=== PATIENT | male | born 1955 | race Caucasian/White ===

== ENCOUNTER → 2017-09-03 | Outpatient (CLI) | payer OTHER ==
[~2017-09-03] MED LIST: ADVAIR 100/501 E1 INH; ADVAIR 250/501 EA PO; ASPRIN/BUTALBIT1 TAB PO; ATENOLOL100 MG PO; ATENOLOL25 MG PO; ATIVAN0.5 MG PO; BAYER GENUINE325 MG PO; CLOPIDOGREL75 MG PO; EFFEXOR XR75 M1 PO; FLEXERIL10 MG PO; GABAPENTIN300 MG PO; IMDUR SA60 M1 PO; ISOSORBIDE PO; LIPITOR40 MG PO; LISINOPRIL/HCTZ1 TA5 PO; LISINOPRIL10 MG PO; LORAZEPAM0.5 MG PO; MOTRIN800 MG PO; NIACIN500 MG PO; PERCOCET 325 MG1 TA2 PO; PLAVIX75 MG PO; PROAIR HFA0.09 MG/AC PO; PROVENTIL0.09 MG/AC IH; SIMVASTATIN80 MG PO; SPIRIVA18 MCG IH; THEOPHYLLINE200 M3 PO; VENLAFAXINE75 MG PO; VITAMIN D2000 IU PO
== END | disposition home or self-care (01) ==
LOC: US 12:03
DX: I65.23 Occlusion and stenosis of bilateral carotid arteries (principal); R59.9 Enlarged lymph nodes, unspecified; Z95.5 Presence of coronary angioplasty implant and graft

== ENCOUNTER → 2017-10-06 | Outpatient (CLI) | payer OTHER ==
[2017-10-06 10:20] LABS: BASO # 0.1 10*3/uL (0.0-0.1); BASO % 0.7 % (0.0-1.0); EOS # 0.2 10*3/uL (0.0-0.4); EOS % 2.3 % (1.0-4.0); HEMATOCRIT 42.9 % (42.0-52.0); HEMOGLOBIN 14.6 g/dl (14.0-18.0); LYMPH # 1.2 10*3/uL (1.3-4.4); LYMPH % 17.1 % (27.0-41.0); MEAN CELL VOLUME 88.3 fl (80.0-94.0); MEAN PLATELET VOLUME 9.9 fl (9.6-12.3); MONO # 0.6 10*3/uL (0.1-1.0); MONO % 8.2 % (3.0-9.0); NEUT # 4.9 10*3/uL (2.3-7.9); NEUT % 71.4 % (47.0-73.0); PLATELET COUNT AUTOMATED 182 10*3/uL (130-400); RED BLOOD COUNT 4.86 10*6/uL (4.50-5.90); RED CELL DISTRI WIDTH 12.9 % (0-14.5); WHITE BLOOD COUNT 6.9 10*3/uL (4.8-10.8)
[2017-10-06 10:33] LABS: ALBUMIN 3.8 gm/dl (3.1-4.5); ALKALINE PHOSPHATASE 110 U/L (45-117); BUN 13 mg/dl (7-24); CHLORIDE 101 mmol/L (98-107); CHOLESTEROL 109 mg/dL (<200); CREATININE 0.92 mg/dL (0.70-1.30); HDL CHOLESTEROL 49 mg/dl (40-60); LDL CHOLESTEROL 40 mg/dL (9-159); POTASSIUM 4.4 mmol/L (3.5-5.1); SGOT/AST 22 IU/L (3-35); SGPT/ALT 20 U/L (12-78); SODIUM 138 mmol/L (136-145); TOTAL PROTEIN 7.6 gm/dL (6.4-8.2); TRIGLYCERIDES 98 mg/dl (<150); VLDL CHOLESTEROL 20 mg/dL (6-40)
== END | disposition home or self-care (01) ==
LOC: CT 10-01 10:00 → LAB 02:21 → CT 02:21
PROVIDERS: Internal Medicine
DX: I63.312 Cerebral infarction due to thrombosis of left middle cerebral artery (principal); J43.2 Centrilobular emphysema; E78.00 Pure hypercholesterolemia, unspecified

== ENCOUNTER 2017-11-03 16:54 | Inpatient (IN) | payer OTHER ==
[~2017-11-03] VITALS: Ht 167.6 cm; Wt 73.2 kg
--- NOTE | ~2017-11-03 | PR ---
[place], [place] PROGRESS NOTE NAME: RALPH GARZA UNIT #: [id number] ROOM: 420 DOCTOR: GINA CHIU MD,REBECCA BIRTHDATE: [birth year] DOS: 11/05/2017 SUBJECTIVE: The patient was noted with coughing and shortness breath, wheezing, all have been noted with gradual reduction. Denies symptoms of chest pain. There were no symptoms of hemoptysis. Denies symptoms of nausea or vomiting. The patient has not been noted with any edema of the lower extremity. Denies any symptoms of abdominal pain, headache, or dysphagia. The remaining systems were reviewed. They were noted all negative. OBJECTIVE: VITAL SIGNS: For the patient, which have been recorded, showed normal temperature, respiratory rate 18, heart rate 79, blood pressure 130/60 this morning. Pulse oxygen saturation of the patient noted as 98% on 3 liters cannula this morning. HEENT: Examination shows head was atraumatic. Eyes nonicterus. NECK: Supple. CARDIOVASCULAR: S1, S2 audible. LUNGS: General reduction in breath sounds with partial improvement in air entry from yesterday. There were no crackles. ABDOMEN: Soft, nontender, bowel sounds present. EXTREMITIES: Without any acute edema. SKIN: Without any lesions or rashes. MUSCULOSKELETAL: Without acute deformities. LABORATORY DATA: Reviewed the labs today. Culture of the sputum of this patient that was done on 11/04/2017 shows moderate white blood cells with few gram-positive cocci in pairs. CBC of the patient that was done this morning shows WBC count normal, hemoglobin 12.9, hematocrit 39.2, platelet count 232,000, with 93% segmented neutrophils. CMP this morning, BUN 14, creatinine was normal, glucose 155. Albumin 2.8. IMAGING STUDIES: Chest x-ray of yesterday, 2-view, which was reviewed, shows evidence of areas of pulmonary fibrosis. Silicosis was suspected previously. CT scan of the neck of the patient that does include the upper portion of the thorax was also reviewed, shows evidence of a nodule, whether related to silicosis or others is to be further defined. IMPRESSION: 1. The patient who has been noted with resolving acute on chronic severe hypoxic respiratory failure with hypercapnia as well. 2. The patient with silicosis, possibility of progressive massive pulmonary fibrosis would be considered as well with the current chest x-ray. 3. Acute exacerbation of chronic obstructive pulmonary disease with partial improvement in the last 24 hours. There was no evidence of at least pneumonia noted major on the current chest x-ray reviewed. PLAN OF MANAGEMENT: CT scan of the chest will be ordered for the patient for further clarification of the current abnormality on the chest x-ray for pneumonia, pulmonary nodule, and silicosis. The patient was already ordered the TB gold test yesterday as well. Continue in the meantime other previous [place], [place] PROGRESS NOTE NAME: RALPH GARZA Latricia UNIT #: [id number] ROOM: 420 DOCTOR: REBECCA RICKETTS MD BIRTHDATE: [birth year] therapy, plan of management and care. Continue corticosteroids, antibiotics, bronchodilators. CT scan of chest without contrast was ordered for today. REBECCA FUENTES MD CM:PNBECKY [id number] REBECCA CHIU MD 11/06/17 0033 interface
--- NOTE | ~2017-11-03 | EKG ---
[place], [place] ELECTROCARDIOGRAM REPORT NAME: RALPH GARZA UNIT #: [id number] ROOM: 420 DOCTOR: GINA CHIU MD,REBECCA BIRTHDATE: [birth year] DOS: 11/03/2017 ELECTROCARDIOGRAM REPORT TIME: 5:29 p.m. The electrocardiogram shows normal sinus rhythm. The heart rate of 72 beats per minute. No electrocardiographic abnormalities are noted of concern. REBECCA FUENTES MD CM:EKGRPT:ELECTROCARDIOGRAM REPORT [id number] REBECCA CHIU MD
--- NOTE | ~2017-11-03 | CON ---
[place], [place] REPORT OF CONSULTATION NAME[id number] UNIT #: [id number] ROOM: 420 DOCTOR: GINA CHIU MDREBECCA BIRTHDATE: [birth year] DOS: 11/04/2017 PULMONARY CONSULTATION, EVALUATION AND MANAGEMENT REASON FOR CONSULTATION: Assess the patient for COPD exacerbation as well as an abnormal CT scan of the chest. HISTORY OF PRESENT ILLNESS: This is a 62-year-old white male who has been known with past history of simple silicosis of the lung longstanding monitored in my office. He has been recently admitted to the hospital in [facility] from the date of 10/26/2017 until 10/29/2017. The patient developed acute severe respiratory failure. The patient discharged home on high flow of oxygen supplementation 4 L initially and then later on 6 L nasal cannula. The patient has been using oxygen supplementation yesterday and presented in my office for assessment. The patient has not been noted with improvement in the symptoms. The patient was reporting symptoms of having progressive cough, which are noted nonproductive. Denies symptoms of chest pain or hemoptysis. He was complaining of shortness breath, which is occurring at rest with minimal exertion. He was noted with increased daytime sleepiness as well reported by the spouse present with the patient. The patient was also noted with symptoms of wheezing. The patient had tightness in the chest. He has been assessed in the office and recommended for hospitalization and the patient was noted with ongoing acute respiratory failure with exacerbation of COPD, nonresponsive to the previous treatment. REVIEW OF SYSTEMS: CONSTITUTIONAL: Fatigue and tiredness noted with increased sleepiness. There were no symptoms fever or chills. EYES: Denies any burning, redness, tenderness. EARS, NOSE, THROAT SYMPTOMS: Denies sore throat, hoarseness, otalgia, postnasal drainage. CARDIOVASCULAR SYSTEM: Denies angina pain, edema, pain in the lower extremities or palpitations. GASTROINTESTINAL: No dysphagia, nausea, vomiting, diarrhea, abdominal pain, hematemesis, melena, or hematochezia. MUSCULOSKELETAL: Acute joint pain, redness, or tenderness. SKIN: Denies lesions or rashes. CENTRAL NERVOUS SYSTEM: Weakness and fatigue were reported without any focal neurologic deficit. Remaining systems noted all negative. PAST MEDICAL HISTORY: 1. Simple silicosis known since 2006. 2. Recent acute hypoxic respiratory failure, use of oxygen supplementation 6 L nasal cannula since discharge from [facility] in 10/2017. 3. History of general anxiety disorder and neurosis. 4. Chronic obstructive pulmonary disease. SOCIAL HISTORY: The patient , has 2 children. Noted history of tobacco use long-term for several years. The smoking was started at the age of 49-year-old a pack of cigarettes per day. Stated nonsmoking of cigarettes since [place], [place] REPORT OF CONSULTATION NAME: RALPH GARZA UNIT #: [id number] ROOM: [facility] DOCTOR: VIRGEN RICKETTS MDM BIRTHDATE: [birth year] 10/26/2017 after the patient was admitted to the hospital until now. 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 PAST SURGICAL HISTORY: Noted as coronary artery bypass grafting. FAMILY HISTORY: The patient's father at 67 years of complication of myocardial infarction. Mother at age of 25-year-old with motor vehicle accident. MEDICATIONS: Administered on this hospitalization were noted as use of aspirin, Paxil, Plavix, Imdur, vitamin D, Lipitor, lisinopril, niacin, metoprolol tartrate, DuoNeb, Dulera, Solu-Medrol 60 mg b.i.d., Mucinex 1200 mg p.o. b.i.d., IV vancomycin, meropenem and Levaquin. DRUG ALLERGIES: THE PATIENT WAS NOTED ALLERGIC TO THE PENICILLIN. PHYSICAL EXAMINATION: GENERAL: This is a 62-year-old white male patient who has been currently lying in the bed stated reduction in improvement of respiratory symptom for yesterday. The patient's height recorded with nursing staff on admission, height of 5 feet 6 inches, weight 161 pounds, BMI 26. VITAL SIGNS: Shows a normal temperature, respiratory rate 20-18, heart rate of 90-85, blood pressure 114/58-157:68. The pulse oxygen saturation noted on 3 L nasal cannula 96% saturation. HEENT: Head was atraumatic. Eyes nonicterus. NECK: Supple. CARDIOVASCULAR: S1, S2 audible. LUNGS: The patient was noted with moderate to severe decreased breath sounds. Partial improvement noted from yesterday with the expiratory wheezing noted moderately. There were no crackles. ABDOMEN: Soft, flat, nontender. EXTREMITIES: Without any edema, clubbing, cyanosis. CENTRAL NERVOUS SYSTEM: The patient's cranial nerves 2-12 intact. No focal deficit. VISIBLE SKIN: No lesions or rashes. LABORATORY DATA: CBC on 11/03/2017 shows a normal CBC. The lactic acid yesterday normal at 1.2. PTT was noted as normal yesterday. Arterial blood gas yesterday; pH of 7.39, pCO2 of 53, pO2 103. The CBC of the patient this morning: WBC count of 5.2, hemoglobin 13.3, hematocrit normal, platelet count was normal. The PTT was noted with INR today normal. Arterial blood gas of the patient on 3 L shows pH of 7.40, pCO2 of 47, pO2 77 this morning on 3 L nasal cannula. The chest x-ray of the patient was noted with evidence of nodular opacities noted in the lungs with finding of progressive massive pulmonary fibrosis could be suspected with silicosis. Post coronary artery bypass grafting changes were also noted. IMPRESSION: 1. The patient who has been currently admitted to the hospital noted with acute hypoxic respiratory failure with ongoing acute exacerbation of chronic [place], [place] REPORT OF CONSULTATION NAME: RALPH GARZA UNIT #: [id number] ROOM: 420 DOCTOR: VIRGEN RICKETTS MDM BIRTHDATE: [birth year] obstructive pulmonary disease, suboptimally resolved with past treatment. The patient had recent hospitalization in other hospital. 2. Current nodular opacity in the lungs was most likely suggestive of progression of massive pulmonary fibrosis. 3. High risk of tuberculosis with history of silicosis. 4. Chronic nicotine dependence. The patient with recent tobacco cessation for long-term use. Rule out lung malignancy as well. 5. History of essential hypertension. 6. Coronary artery disease. 7. 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 PLAN OF MANAGEMENT: The patient noted hypercapnia yesterday, started on the BiPAP, but has not been used by the patient from yesterday from the Emergency Room. The arterial blood gases done today. The patient will be started on BiPAP to support the respiratory failure management with a setting of 08/06 at bedtime and p.r.n. during the day and respiratory distress. Continue current dose of corticosteroids. TB Gold test was ordered. The actual images of the CT scan will be obtained from [facility] for review prior to making any other additional assessment. In the meantime, TB Gold test was ordered. Supportive therapy, plan of management will remain in progress. Other plan of treatment and therapy to be changed based on the progression of his illnesses. Usual care. Sputum for Gram stain culture. The patient is able to expectorate sputum and will be sent to the laboratory. Monitor management for any other known infection. No changes in the antibiotic preliminary will be needed. However, the patient was noted with multiple broad-spectrum intravenous antibiotic. The antibiotic spectrum will be deescalated based on the preliminary culture results. Continue bronchodilator every 4 hours, which has been given for the management of acute exacerbation of chronic obstructive pulmonary disease while awake. His home medication has now been currently resumed and will be started later on for the chronic obstructive pulmonary disease long-term management. Thanks for allowing me to participate in the care of this patient. REBECCA FUENTES MD CM:CONSTR:REPORT OF CONSULTATION 1656 11/05/17 0015 interface
--- NOTE | ~2017-11-03 | PR ---
[place], [place] PROGRESS NOTE NAME: RALPH GARZA UNIT #: [id number] ROOM: 420 DOCTOR: REBECCA RICKETTS MD BIRTHDATE: [birth year] DOS: 11/06/2017 PULMONARY PROGRESS NOTE SUBJECTIVE: He has been noted comfortable at this time with further improvement in the respiratory symptom noted. Cough has improved markedly. Shortness of breath, resolving. There were symptoms of wheezing. There were symptoms of chest pain. OBJECTIVE: VITAL SIGNS: Normal temperature, respiratory rate 20, heart rate 66, blood pressure 146/69 to 127/60. The pulse oxygen saturation on 2 liters nasal cannula 95% saturation. HEENT: Examination shows no acute change. NECK: Supple. CARDIOVASCULAR: S1, S2 is audible. LUNGS: Noted without any wheezing or crackles. ABDOMEN: Soft, nontender. EXTREMITIES: Without any acute edema. LABORATORY DATA: The patient's CT scan of chest was noted with finding of pulmonary fibrosis with another 4.6 cm nodule noted on right middle lobe. IMPRESSION: 1. Resolving acute on chronic hypoxic respiratory failure progressively with exacerbation of chronic obstructive pulmonary disease at this time. 2. Right middle lobe mass as well as simple silicosis, require further assessment, especially right middle lobe mass. PLAN OF MANAGEMENT: The patient could be discharged home on tapering dose of prednisone and antibiotic at the present time. The oxygen supplementation will be needed 3 liters from 6 liter nasal cannula. At the present time, the assessment and management was discussed with the patient's spouse. The patient will be seen in the office. We will have a PET scan done for the patient for the current radiologic abnormalities assessment. [place], [place] PROGRESS NOTE NAME: RALPH GARZA UNIT #: [id number] ROOM: 420 DOCTOR: REBECCA RICKETTS MD BIRTHDATE: [birth year] REBECCA FUENTES MD CM:PNTRANS [id number] REBECCA CHIU MD 11/06/17 1027 interface
[~2017-11-03 16:54] MED LIST changes: -LISINOPRIL10 MG PO; +ZESTRIL5 MG PO
[2017-11-03 17:00] VITALS: BP 134/51
[2017-11-03] MEDS ORDERED: PREDNISONE10 MG PO (17:06)
[2017-11-03] MEDS ORDERED: LEVOFLOXACIN500 MG PO (17:06)
[2017-11-03] MEDS ORDERED: PAXIL10 MG PO (17:10)
[2017-11-03] MEDS ORDERED: Ipratropium Brom3 ML INH (17:10)
[2017-11-03] MEDS ORDERED: VENTOLIN 02.5 MG/3 M INH (17:10)
[2017-11-03 17:35] LABS: BASO % 0.1 % (0.0-1.0); EOS % 0.4 % (1.0-4.0); HEMATOCRIT 43.3 % (42.0-52.0); HEMOGLOBIN 14.5 g/dl (14.0-18.0); LYMPH # 0.8 10*3/uL (1.3-4.4); LYMPH % 7.2 % (27.0-41.0); MEAN CELL VOLUME 89.5 fl (80.0-94.0); MEAN CORPUSCULAR HGB CONC 33.5 g/dl (33.0-37.0); MEAN PLATELET VOLUME 9.2 fl (9.6-12.3); MONO % 9.1 % (3.0-9.0); NEUT # 8.7 10*3/uL (2.3-7.9); NEUT % 82.9 % (47.0-73.0); PLATELET COUNT AUTOMATED 275 10*3/uL (130-400); RED BLOOD COUNT 4.84 10*6/uL (4.50-5.90); RED CELL DISTRI WIDTH 13.6 % (0-14.5); WHITE BLOOD COUNT 10.5 10*3/uL (4.8-10.8)
[2017-11-03 17:45] LABS: ACT PARTIAL THROMBO TIME 22.4 SECONDS (20.8-31.5); INTERNATIONAL NORM RATIO 1.1 (2.0-3.5)
[2017-11-03 17:52] LABS: ALBUMIN 3.2 gm/dl (3.1-4.5); ALKALINE PHOSPHATASE 74 U/L (45-117); BUN 15 mg/dl (7-24); CHLORIDE 95 mmol/L (98-107); CREATININE 0.71 mg/dL (0.70-1.30); POTASSIUM 4.7 mmol/L (3.5-5.1); SGOT/AST 12 IU/L (3-35); SGPT/ALT 23 U/L (12-78); SODIUM 136 mmol/L (136-145); TOTAL PROTEIN 7.3 gm/dL (6.4-8.2)
[2017-11-03 17:56] LABS: ABG HCO3 32.3 mmol/l (22-26); ABG O2 SATURATION 97.9 % (95-97); ARTERIAL BLOOD GAS PCO2 53.3 mmHg (35-45); ARTERIAL BLOOD GAS PH 7.396 (7.35-7.45)
[2017-11-03 17:57] LABS: TROPONIN I < 0.015 ng/ml (<0.045)
[2017-11-03 18:55] LABS: BILIRUBIN NEGATIVE (NEGATIVE); BLOOD NEGATIVE (NEGATIVE); CLARITY CLEAR (CLEAR); COLOR YELLOW (YELLOW); GLUCOSE NEGATIVE (NEGATIVE); KETONE NEGATIVE (NEGATIVE); LEUKO ESTERASE NEGATIVE (NEGATIVE); NITRITE NEGATIVE (NEGATIVE); PH 5.5 (5.0-9.0); SPECIFIC GRAVITY >= 1.030 (1.005-1.030); UROBILINOGEN 0.2 E.U./dl (0.2-1.0)
[2017-11-03 19:00] VITALS: BP 137/63
[2017-11-03 19:02] LABS: BACTERIA TRACE; MUCOUS TRACE; RBC 0-2 rbc/hpf (0-2); WBC 0-2 wbc/hpf (0-5)
[2017-11-04] VITALS: BP 133/63
[2017-11-04 04:00] VITALS: BP 114/58
[2017-11-04 06:25] LABS: HEMATOCRIT 39.3 % (42.0-52.0); HEMOGLOBIN 13.3 g/dl (14.0-18.0); MEAN CELL VOLUME 89.5 fl (80.0-94.0); MEAN CORPUSCULAR HGB 30.3 pg (27.0-31.0); MEAN CORPUSCULAR HGB CONC 33.8 g/dl (33.0-37.0); MEAN PLATELET VOLUME 9.5 fl (9.6-12.3); PLATELET COUNT AUTOMATED 212 10*3/uL (130-400); RED BLOOD COUNT 4.39 10*6/uL (4.50-5.90); RED CELL DISTRI WIDTH 13.2 % (0-14.5); WHITE BLOOD COUNT 5.2 10*3/uL (4.8-10.8)
[2017-11-04 06:56] LABS: CHLORIDE 101 mmol/L (98-107); POTASSIUM 4.1 mmol/L (3.5-5.1); SODIUM 138 mmol/L (136-145)
[2017-11-04 06:59] LABS: PLATELET SUFFICIENCY NORMAL (NORMAL); TOTAL CELLS COUNTED 100 #CELLS
[2017-11-04 07:01] LABS: ACT PARTIAL THROMBO TIME 22.6 SECONDS (20.8-31.5); INTERNATIONAL NORM RATIO 1.1 (2.0-3.5)
[2017-11-04 07:10] LABS: ALBUMIN 2.8 gm/dl (3.1-4.5); ALKALINE PHOSPHATASE 69 U/L (45-117); BUN 13 mg/dl (7-24); CHOLESTEROL 97 mg/dL (<200); CREATININE 0.83 mg/dL (0.70-1.30); FREE T4 1.19 ng/dl (0.76-1.46); HDL CHOLESTEROL 44 mg/dl (40-60); LDL CHOLESTEROL 43 mg/dL (9-159); PHOSPHOROUS 3.2 mg/dL (2.5-4.9); SGOT/AST 14 IU/L (3-35); SGPT/ALT 21 U/L (12-78); THYROID STIM HORMONE (HS) 0.178 uIU/ml (0.358-4.75); TOTAL PROTEIN 6.5 gm/dL (6.4-8.2); TRIGLYCERIDES 49 mg/dl (<150); VLDL CHOLESTEROL 10 mg/dL (6-40)
[2017-11-04 08:00] VITALS: BP 144/57
[2017-11-04 08:36] LABS: VITAMIN D, 25-HYDROXY 32.2 ng/mL (30-100)
[2017-11-04] MEDS ORDERED: LOPRESSOR25 MG PO (11:18)
[2017-11-04 12:00] VITALS: BP 140/65
[2017-11-04 12:12] LABS: ABG BASE EXCESS 4.5 mmol/L (-2.0-2.0); ABG HCO3 29.8 mmol/l (22-26); ABG O2 SATURATION 95.1 % (95-97); ARTERIAL BLOOD GAS PCO2 47.8 mmHg (35-45); ARTERIAL BLOOD GAS PH 7.408 (7.35-7.45); ARTERIAL BLOOD GAS PO2 77.4 mmHg (80-90)
[2017-11-04 16:00] VITALS: BP 157/68
[2017-11-04 20:00] VITALS: BP 146/53
[2017-11-05] VITALS: BP 127/60; BP 153/62
[2017-11-05 07:05] LABS: HEMATOCRIT 39.2 % (42.0-52.0); HEMOGLOBIN 12.9 g/dl (14.0-18.0); MEAN CELL VOLUME 89.3 fl (80.0-94.0); MEAN CORPUSCULAR HGB 29.4 pg (27.0-31.0); MEAN CORPUSCULAR HGB CONC 32.9 g/dl (33.0-37.0); MEAN PLATELET VOLUME 9.9 fl (9.6-12.3); PLATELET COUNT AUTOMATED 232 10*3/uL (130-400); RED BLOOD COUNT 4.39 10*6/uL (4.50-5.90); RED CELL DISTRI WIDTH 13.2 % (0-14.5); WHITE BLOOD COUNT 6.9 10*3/uL (4.8-10.8)
[2017-11-05 07:20] LABS: ALBUMIN 2.8 gm/dl (3.1-4.5); ALKALINE PHOSPHATASE 70 U/L (45-117); BUN 14 mg/dl (7-24); CHLORIDE 98 mmol/L (98-107); CREATININE 0.72 mg/dL (0.70-1.30); POTASSIUM 4.3 mmol/L (3.5-5.1); SGOT/AST 19 IU/L (3-35); SGPT/ALT 23 U/L (12-78); SODIUM 137 mmol/L (136-145); TOTAL PROTEIN 6.5 gm/dL (6.4-8.2)
[2017-11-05 07:37] LABS: ATYPICAL LYMPHS 1 % (0-0); PLATELET SUFFICIENCY NORMAL (NORMAL); TOTAL CELLS COUNTED 100 #CELLS
[2017-11-05 08:00] VITALS: BP 130/60; BP 191/94
[2017-11-05 12:00] VITALS: BP 154/90
[2017-11-05 16:00] VITALS: BP 114/46
[2017-11-05 20:00] VITALS: BP 121/53
[2017-11-06] VITALS: BP 127/60
[2017-11-06 08:00] VITALS: BP 146/69
[2017-11-06] MEDS ORDERED: LEVAQUIN750 M1 PO (09:52)
[2017-11-06] MEDS ORDERED: DUONEB 3 MG/3 ML3 M1 NEB (09:52)
[2017-11-06] MEDS ORDERED: PREDNISONE10 MG PO (09:52)
[2017-11-09 06:07] LABS: MITOGEN VALUE 0.03 IU/mL (.); TB Ag MINUS NIL VALUE <0.00 IU/mL (.); TB Ag VALUE 0.01 IU/mL (.); TB GOLD Indeterminate (Negative)
== END 2017-11-06 10:55 | disposition home or self-care (01) | DRG 871 ==
LOC: ED 16:54 → EDHOLD 18:11 → 4E 18:11
PROVIDERS: Emergency Medicine; Internal Medicine; Internal Medicine Critical Care Medicine
DX: A41.9 Sepsis, unspecified organism (principal); J18.9 Pneumonia, unspecified organism; J96.21 Acute and chronic respiratory failure with hypoxia; G93.40 Encephalopathy, unspecified; J96.22 Acute and chronic respiratory failure with hypercapnia; I25.810 Atherosclerosis of coronary artery bypass graft(s) without angina pectoris; J43.9 Emphysema, unspecified; E66.3 Overweight; R79.89 Other specified abnormal findings of blood chemistry; I10 Essential (primary) hypertension; R91.1 Solitary pulmonary nodule; F41.1 Generalized anxiety disorder; E78.5 Hyperlipidemia, unspecified; F17.210 Nicotine dependence, cigarettes, uncomplicated; J62.8 Pneumoconiosis due to other dust containing silica; D64.9 Anemia, unspecified; Y95 Nosocomial condition; I73.9 Peripheral vascular disease, unspecified; Z95.1 Presence of aortocoronary bypass graft; Z98.62 Peripheral vascular angioplasty status; Z88.0 Allergy status to penicillin; Z79.899 Other long term (current) drug therapy; Z79.82 Long term (current) use of aspirin; Z82.3 Family history of stroke; Z82.49 Family history of ischemic heart disease and other diseases of the circulatory system; Z99.81 Dependence on supplemental oxygen; Z71.6 Tobacco abuse counseling; Z86.73 Personal history of transient ischemic attack (TIA), and cerebral infarction without residual deficits; Z98.52 Vasectomy status; Z84.89 Family history of other specified conditions; Z68.26 Body mass index [BMI] 26.0-26.9, adult; Z87.01 Personal history of pneumonia (recurrent)

== ENCOUNTER → 2017-12-22 | Day surgery (SDC) | payer OTHER ==
[~2017-12-22] VITALS: Ht 167.6 cm; Wt 77.1 kg
[~2017-12-22] MED LIST changes: +DUONEB 3 MG/3 ML3 M1 NEB; +Ipratropium Brom3 ML INH; +LEVAQUIN750 M1 PO; +LEVOFLOXACIN500 MG PO; +LOPRESSOR25 MG PO; +PAXIL10 MG PO; +PREDNISONE10 MG PO; +VENTOLIN 02.5 MG/3 M INH
--- NOTE | ~2017-12-22 | PROC NOTE ---
[place], [place] PROCEDURE NOTE NAME: RALPH GARZA UNIT #: [id number] ROOM: DOCTOR: GINA CHIU MD,REBECCA BIRTHDATE: [birth year] DOS: 12/22/2017 PREOPERATIVE DIAGNOSIS: The patient with pulmonary nodule, cough, chest congestion, and history of silicosis. POSTOPERATIVE DIAGNOSES: Evidence of acute purulent tracheobronchitis noted with bronchial washing was obtained in the endobronchial tree bilaterally including from the right upper lung. PROCEDURE DESCRIPTION: Informed consent for this patient was obtained. The patient was brought to the OR and placed in a supine position. Conscious sedation was administered by the Anesthesia Department. After achieving appropriate sedation for this patient, the bronchoscope was advanced to the vocal cord and tracheal lumen noted, moderate amount of thick purulent secretion suctioned out at the una level. Similar secretion present in endobronchial tree bilaterally. There were no endobronchial ____ lesions noted. Right upper lobe bronchial washing was also taken. The bronchial washing was obtained from other endobronchial subsegment. Increased friability was noted consistent with acute infection, minimal bleeding occurred with bronchoscope as well. The bronchial washing sent for culture. Postoperative findings were discussed with patient and family members. There was no specific endobronchial obstruction was noted. Procedure well tolerated by the patient. REBECCA FUENTES MD CM:PROCNOTE:PROCEDURE NOTE [id number] REBECCA CHIU MD
[2017-12-22 08:42] VITALS: BP 98/56
[2017-12-22 09:56] VITALS: BP 149/41
[2017-12-22 10:12] VITALS: BP 116/65
[2017-12-22 10:22] VITALS: BP 106/67
[2017-12-23 19:04] LABS: ACID FAST SPEC PROCESSING Concentration (.)
== END | disposition home or self-care (01) ==
LOC: SDC 12-17 08:45
PROVIDERS: Internal Medicine Critical Care Medicine
DX: J20.9 Acute bronchitis, unspecified (principal); I10 Essential (primary) hypertension; J44.9 Chronic obstructive pulmonary disease, unspecified; F17.210 Nicotine dependence, cigarettes, uncomplicated; Z95.1 Presence of aortocoronary bypass graft; Z95.828 Presence of other vascular implants and grafts; Z82.49 Family history of ischemic heart disease and other diseases of the circulatory system; Z88.0 Allergy status to penicillin; I25.10 Atherosclerotic heart disease of native coronary artery without angina pectoris; Z86.73 Personal history of transient ischemic attack (TIA), and cerebral infarction without residual deficits; Z79.899 Other long term (current) drug therapy

== ENCOUNTER → 2018-01-07 | Outpatient (CLI) | payer OTHER | END | disposition home or self-care (01) | LOC: US 02:28 | DX: N28.1 Cyst of kidney, acquired (principal) ==

== ENCOUNTER 2018-03-07 08:02 | Inpatient (IN) | payer OTHER ==
[~2018-03-07] VITALS: Ht 167.6 cm; Wt 81.7 kg
[2018-03-07] VITALS (7 sets, daily range): BP systolic 137–163; BP diastolic 60–81
--- NOTE | ~2018-03-07 | PR ---
[place], [place] PROGRESS NOTE NAME: RALPH GARZA UNIT #: [id number] ROOM: 503 DOCTOR: REBECCA RICKETTS MD BIRTHDATE: [birth year] DOS: 03/09/2018 PULMONARY PROGRESS NOTE SUBJECTIVE: The patient noted comfortable at this time without any acute distress. He has not been noted with symptoms of chest pain. Significant improvement in the respiratory symptoms noted with reduction in coughing, sputum expectoration, wheezing and shortness of breath. OBJECTIVE: VITAL SIGNS: Noted normal temperature, respiratory rate 20, heart rate 68, blood pressure 111/62. Pulse oxygen saturation recorded on 3 liters nasal cannula as 97% saturation. HEENT: Examination shows head was atraumatic. Eyes nonicterus. CARDIOVASCULAR: S1, S2 is audible. LUNGS: Noted without any wheezing or crackles. ABDOMEN: Soft, nontender. EXTREMITIES: Without any acute edema. RADIOLOGY: Chest x-ray that was done yesterday was reviewed, does not show any acute pulmonary infiltration, marked nodular pattern, finding of simple silicosis noted. MICROBIOLOGY: Culture of the sputum noted normal ash. Gram stain on 03/07/2018 shows many white blood cells, moderate epithelial cells, many Gram-positive bacilli, a few Gram-positive cocci in pairs and clusters. IMPRESSION: 1. The patient with acute exacerbation of chronic obstructive pulmonary disease with acute bronchitis, improving. There is no evidence of pneumonia at the present time. Sputum culture is pending; preliminarily noted normal ash. 2. The patient with pulmonary silicosis, which was noted as a simple silicosis in the past, remains unchanged. PLAN OF TREATMENT: The patient could be discharged home on oral antibiotics, bronchodilators, and tapering prednisone. He was advised about continued abstinence from tobacco use. Other treatment therapy, plan of management as in progress. Usual care. [place], [place] PROGRESS NOTE NAME: RALPH GARZA UNIT #: [id number] ROOM: 503 DOCTOR: REBECCA RICKETTS MD BIRTHDATE: [birth year] REBECCA FUENTES MD CM:PNTRANS [phone] REBECCA CHIU MD 03/10/18 0113 interface
--- NOTE | ~2018-03-07 | EKG ---
[place], [place] ELECTROCARDIOGRAM REPORT NAME: RALPH GARZA UNIT #: [id number] ROOM: 503 DOCTOR: GINA CHIU MD,REBECCA BIRTHDATE: [birth year] DOS: 03/07/2018 Electrocardiogram was done on 03/07/2018, at 08:06 a.m. shows evidence of a mild sinus tachycardia, heart rate of 104 beats per minute. Nonspecific ST-T changes noted in the lead III and aVF. REBECCA FUENTES MD CM:EKGRPT:ELECTROCARDIOGRAM REPORT [id number] REBECCA CHIU MD
--- NOTE | ~2018-03-07 | CON ---
[place], [place] REPORT OF CONSULTATION NAME[facility] [id number] UNIT #: [id number] ROOM: 503 DOCTOR: REBECCA RICKETTS MD BIRTHDATE: [birth year] DOS: 03/08/2018 PULMONARY CONSULTATION, EVALUATION AND MANAGEMENT CONSULTATION REQUESTED BY: Hospitalist Services. REASON FOR CONSULTATION: Assessment of the current acute pneumonia and other abnormal respiratory symptoms. 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 The patient has been noted with abnormal pulmonary nodules, one of it was biopsied from the right lung with the findings noted consistent with silicosis as well. He has been noted in his usual state of health. In the last 3-4 days, the patient reported having symptoms of gradual increased shortness of breath. The patient was also complaining of pain in the retrosternal area, which was noted nonradiating. He has been noted with chest congestion and coughing as well. Coughing was noted without any sputum expectoration initially, later noted with yellowish sputum expectoration. The patient denies symptoms of wheezing. He has not been noted with symptoms of hemoptysis. The patient has been assessed in the hospital, treated, and started treatment for acute pneumonia. Also noted with mild sinus tachycardia. REVIEW OF SYSTEMS: CONSTITUTIONAL: Fatigue and tiredness reported with current symptoms. There were no symptoms of fever or chills reported. EYES: Denies any burning, redness, or tenderness. EARS, NOSE, THROAT SYMPTOMS: Denies sore throat, hoarseness, otalgia, postnasal drainage, or epistaxis. CARDIOVASCULAR: Denies any anginal pain, edema, or pain of the lower extremities. GASTROINTESTINAL: Denies dysphagia, nausea, vomiting, diarrhea, abdominal pain, hematemesis, melena, or hematochezia. SKIN: Denies any lesions or rashes. MUSCULOSKELETAL: Denies any symptoms of joint deformity, pain, or swelling. CENTRAL NERVOUS SYSTEM: No dizziness, headache, diplopia, or syncopal episodes. Remaining systems were reviewed, they were noted all negative. PAST MEDICAL HISTORY: Known with history of: 1. Simple silicosis of the lungs, known for several years. 2. The patient with chronic hypoxic respiratory failure, dependency on oxygen 3-4 liters nasal cannula. 3. General anxiety disorder. 4. Coronary artery disease. 5. History of COPD. PAST SURGICAL HISTORY: 1. Coronary artery bypass grafting. 2. Operative bronchoscopy done on 12/22/2017. 3. CT-guided needle aspiration biopsy of the right lung pulmonary nodule noted [place], [place] REPORT OF CONSULTATION NAME: RALPH GARZA UNIT #: [id number] ROOM: [facility] DOCTOR: GINA CHIU MD,REBECCA BIRTHDATE: [birth year] with findings of silicosis, done in [facility]. SOCIAL HISTORY: The patient is , has 2 children, lives at home. He had been noted with tobacco use, started at the age of [age] years old, about a pack of cigarettes per day, which was discontinued since 10/2017. Denies a history of alcohol use or illicit drug use. FAMILY HISTORY: The patient reported father at the age of 6767 years old from complications of myocardial infarction and mother at the age of 2525 years old from complications related to motor vehicle accident. CURRENT MEDICATIONS: Administered during this hospitalization include IV Solu-Medrol, Protonix, aspirin, Paxil, metoprolol tartrate, gabapentin, lisinopril, Mucinex, Imdur, Dulera, Lovenox for DVT prophylaxis, Plavix, vitamin D, Lipitor, DuoNeb, IV Levaquin, and other p.r.n. medications. ALLERGIES: DRUG ALLERGY HISTORY NOTED ALLERGY TO PENICILLIN. PHYSICAL EXAMINATION: GENERAL: This is a 62-year-old male who has been currently noted awake and alert, without any acute distress at the time of assessment. The patient's height recorded by nursing staff as 5 feet 6 inches, weight of 180 pounds. VITAL SIGNS: Normal temperature since admission, respiratory rate 36-18, and heart rate of 107, mild sinus tachycardia at 89 beats per minute. The pulse oxygen saturation recorded on 3 liters nasal cannula as 98% saturation. HEENT: Head was atraumatic. Eyes nonicterus. NECK: Supple. CARDIOVASCULAR: S1, S2 is audible. LUNGS: Noted with moderate decreased breath sounds with expiratory wheezing. No crackles were heard. ABDOMEN: Soft, bowel sounds present, without tenderness. CENTRAL NERVOUS SYSTEM: Cranial nerves noted 2-12 intact. No focal deficit. MUSCULOSKELETAL: Noted without any acute deformities. LABORATORY DATA: PT and PTT from yesterday noted as normal. CMP that was done yesterday, normal BUN and creatinine, glucose 105. Lactic acid was 1.1. CBC this morning, normal WBC count, hemoglobin 11.3, hematocrit 35.1, platelet count normal. CMP of 03/08/2018: Glucose 154, BUN and creatinine were normal, sodium 135. RADIOLOGY: The chest x-ray that was done 1 view, which was reviewed, noted with evidence of silicosis of the lungs, nodular opacity with possibility of infiltration in the left lung cannot be completely excluded. IMPRESSION: The patient who is currently admitted to the hospital noted with: 1. Acute exacerbation of chronic obstructive pulmonary disease, acute tracheobronchitis, rule out pneumonia on the left lung as well with additional assessment. 2. Past nicotine abuse, which has been discontinued by the patient since 10/2017. [place], [place] REPORT OF CONSULTATION NAME: RALPH GARZA UNIT #: [id number] ROOM: [facility] DOCTOR: REBECCA RICKETTS MD BIRTHDATE: [birth year] 3. History of known pulmonary silicosis of the lungs as well, which is simple silicosis of the lungs. 4. General anxiety disorder. 5. History of coronary artery bypass grafting. 6. Atypical chest pain reported. At this time, the etiology is unclear. PLAN OF MANAGEMENT: The sputum for Gram stain and culture was ordered. Obtain another chest x-ray today PA and lateral to reassess the current pulmonary abnormality, to assess ____ would not be consistent with acute pneumonia. I agree with the use of corticosteroid for the patient as well. Other supportive therapy, plan of management to be continued as previously. Usual care, other supportive plan of management, treatment and care for the patient as well. Usual medical management and other therapies. Bronchodilator will be continued at same frequency. Titrate his oxygen supplementation to maintain pulse ox saturation 92% or greater. Other supportive plan of management with additional changes need to be made for the patient based on progression of the illness. REBECCA FUENTES MD CM:CONSTR:REPORT OF CONSULTATION [id number] 03/09/18 0028 interface
[2018-03-07 08:27] LABS: BASO % 0.3 % (0.0-1.0); EOS # 0.1 10*3/uL (0.0-0.4); EOS % 0.9 % (1.0-4.0); HEMATOCRIT 37.5 % (42.0-52.0); HEMOGLOBIN 12.7 g/dl (14.0-18.0); LYMPH # 0.6 10*3/uL (1.3-4.4); LYMPH % 7.6 % (27.0-41.0); MEAN CELL VOLUME 86.8 fl (80.0-94.0); MEAN CORPUSCULAR HGB 29.4 pg (27.0-31.0); MEAN CORPUSCULAR HGB CONC 33.9 g/dl (33.0-37.0); MONO # 0.9 10*3/uL (0.1-1.0); NEUT # 6.1 10*3/uL (2.3-7.9); NEUT % 78.9 % (47.0-73.0); PLATELET COUNT AUTOMATED 248 10*3/uL (130-400); RED BLOOD COUNT 4.32 10*6/uL (4.50-5.90); WHITE BLOOD COUNT 7.8 10*3/uL (4.8-10.8)
[2018-03-07 08:36] LABS: ACT PARTIAL THROMBO TIME 25.4 SECONDS (20.8-31.5); INTERNATIONAL NORM RATIO 1.1 (2.0-3.5)
[2018-03-07 08:43] LABS: ALBUMIN 3.5 gm/dl (3.1-4.5); ALKALINE PHOSPHATASE 95 U/L (45-117); BUN 14 mg/dl (7-24); CHLORIDE 97 mmol/L (98-107); LIPASE 94 U/L (73-393); POTASSIUM 4.3 mmol/L (3.5-5.1); SGOT/AST 18 IU/L (3-35); SGPT/ALT 16 U/L (12-78); SODIUM 136 mmol/L (136-145); TOTAL PROTEIN 8.6 gm/dL (6.4-8.2)
[2018-03-07] MEDS ORDERED: NEURONTIN300 MG PO (08:44)
[2018-03-07 08:45] LABS: TROPONIN I < 0.015 ng/ml (<0.045)
[2018-03-08] VITALS: BP 129/70
[2018-03-08 06:27] LABS: HEMATOCRIT 35.1 % (42.0-52.0); HEMOGLOBIN 11.3 g/dl (14.0-18.0); MEAN CELL VOLUME 88.9 fl (80.0-94.0); MEAN CORPUSCULAR HGB 28.6 pg (27.0-31.0); MEAN CORPUSCULAR HGB CONC 32.2 g/dl (33.0-37.0); MEAN PLATELET VOLUME 9.3 fl (9.6-12.3); PLATELET COUNT AUTOMATED 248 10*3/uL (130-400); RED BLOOD COUNT 3.95 10*6/uL (4.50-5.90); RED CELL DISTRI WIDTH 12.9 % (0-14.5); WHITE BLOOD COUNT 7.5 10*3/uL (4.8-10.8)
[2018-03-08 06:49] LABS: PLATELET SUFFICIENCY NORMAL (NORMAL); TOTAL CELLS COUNTED 100 #CELLS
[2018-03-08 06:50] LABS: ALBUMIN 3.1 gm/dl (3.1-4.5); ALKALINE PHOSPHATASE 85 U/L (45-117); BUN 15 mg/dl (7-24); CHLORIDE 96 mmol/L (98-107); CHOLESTEROL 119 mg/dL (<200); FREE T4 0.99 ng/dl (0.76-1.46); HDL CHOLESTEROL 44 mg/dl (40-60); LDL CHOLESTEROL 64 mg/dL (9-159); PHOSPHOROUS 4.1 mg/dL (2.5-4.9); POTASSIUM 3.8 mmol/L (3.5-5.1); SGOT/AST 22 IU/L (3-35); SGPT/ALT 20 U/L (12-78); SODIUM 135 mmol/L (136-145); TOTAL PROTEIN 7.9 gm/dL (6.4-8.2); TRIGLYCERIDES 55 mg/dl (<150); VLDL CHOLESTEROL 11 mg/dL (6-40)
[2018-03-08 06:57] LABS: THYROID STIM HORMONE (HS) 0.327 uIU/ml (0.358-4.75)
[2018-03-08 07:47] LABS: VITAMIN D, 25-HYDROXY 34.4 ng/mL (30-100)
[2018-03-08 08:00] VITALS: BP 126/58
[2018-03-08 12:00] VITALS: BP 123/62
[2018-03-08 16:00] VITALS: BP 131/46
[2018-03-08 20:00] VITALS: BP 113/58
[2018-03-08 23:56] VITALS: BP 111/62
[2018-03-09] MEDS ORDERED: PREDNISONE10 MG PO (09:14)
[2018-03-09] MEDS ORDERED: LEVAQUIN750 M1 PO (09:14)
[2018-03-27] MEDS ORDERED: DOXYCYCLINE100 M3 PO (12:36)
[2018-03-27] MEDS ORDERED: MUCINEX ER600 MG PO (12:36)
== END 2018-03-09 11:31 | disposition home or self-care (01) | DRG 871 ==
LOC: ED 08:02 → EDHOLD 09:01 → 5E 09:01
PROVIDERS: Emergency Medicine; Registered Nurse
DX: A41.9 Sepsis, unspecified organism (principal); J18.9 Pneumonia, unspecified organism; J96.22 Acute and chronic respiratory failure with hypercapnia; Z99.81 Dependence on supplemental oxygen; J84.10 Pulmonary fibrosis, unspecified; E44.0 Moderate protein-calorie malnutrition; J44.0 Chronic obstructive pulmonary disease with (acute) lower respiratory infection; J44.1 Chronic obstructive pulmonary disease with (acute) exacerbation; I10 Essential (primary) hypertension; R65.20 Severe sepsis without septic shock; E78.2 Mixed hyperlipidemia; I25.10 Atherosclerotic heart disease of native coronary artery without angina pectoris; D64.9 Anemia, unspecified; J20.9 Acute bronchitis, unspecified; J62.8 Pneumoconiosis due to other dust containing silica; F17.210 Nicotine dependence, cigarettes, uncomplicated; F41.1 Generalized anxiety disorder; R07.89 Other chest pain; Z95.1 Presence of aortocoronary bypass graft; Z82.49 Family history of ischemic heart disease and other diseases of the circulatory system; Z88.0 Allergy status to penicillin; Z68.29 Body mass index [BMI] 29.0-29.9, adult; Z86.73 Personal history of transient ischemic attack (TIA), and cerebral infarction without residual deficits; Z82.3 Family history of stroke; Z79.82 Long term (current) use of aspirin; Z79.899 Other long term (current) drug therapy; Z79.02 Long term (current) use of antithrombotics/antiplatelets

== ENCOUNTER 2019-08-16 13:22 | Inpatient (IN) | payer OTHER ==
[~2019-08-16] VITALS: Ht 167.6 cm; Wt 80.5 kg
[~2019-08-16 13:22] MED LIST changes: +DOXYCYCLINE100 M3 PO; +MUCINEX ER600 MG PO; +NEURONTIN300 MG PO
[2019-08-16 13:24] VITALS: BP 138/63
[2019-08-16 13:53] LABS: BASO % 0.3 % (0.0-1.0); EOS # 0.1 10*3/uL (0.0-0.4); EOS % 0.4 % (1.0-4.0); HEMATOCRIT 39.5 % (42.0-52.0); HEMOGLOBIN 12.6 g/dl (14.0-18.0); LYMPH # 0.6 10*3/uL (1.3-4.4); LYMPH % 5.6 % (27.0-41.0); MEAN CELL VOLUME 85.5 fl (80.0-94.0); MEAN CORPUSCULAR HGB 27.3 pg (27.0-31.0); MEAN CORPUSCULAR HGB CONC 31.9 g/dl (33.0-37.0); MEAN PLATELET VOLUME 10.2 fl (9.6-12.3); MONO # 0.7 10*3/uL (0.1-1.0); MONO % 5.9 % (3.0-9.0); NEUT % 86.7 % (47.0-73.0); PLATELET COUNT AUTOMATED 261 10*3/uL (130-400); RED BLOOD COUNT 4.62 10*6/uL (4.50-5.90); WHITE BLOOD COUNT 11.5 10*3/uL (4.8-10.8)
--- NOTE | 2019-08-16 13:53 | NUR ---
O2 DECREASED TO 4L NC WILL CONTINUE TO MONITOR PULSE OX
[2019-08-16 14:22] LABS: ACT PARTIAL THROMBO TIME 25.6 SECONDS (20.0-32.1)
--- NOTE | 2019-08-16 14:29 | NUR ---
PULSE OX 95% INCREASED O2 TO 6L WILL MONITOR
[2019-08-16 14:53] VITALS: BP 122/65
[2019-08-16 15:11] LABS: BILIRUBIN NEGATIVE (NEGATIVE); BLOOD NEGATIVE (NEGATIVE); CLARITY CLEAR (CLEAR); COLOR YELLOW (YELLOW); GLUCOSE NEGATIVE (NEGATIVE); KETONE NEGATIVE (NEGATIVE); LEUKO ESTERASE NEGATIVE (NEGATIVE); NITRITE NEGATIVE (NEGATIVE); PH 5.5 (5.0-9.0); UROBILINOGEN 0.2 E.U./dl (0.2-1.0)
[2019-08-16 15:44] LABS: BUN 17 mg/dl (7-24)
[2019-08-16 15:45] LABS: ALBUMIN 3.9 gm/dl (3.1-4.5); ALKALINE PHOSPHATASE 115 U/L (45-117); CHLORIDE 104 mmol/L (98-107); POTASSIUM 5.1 mmol/L (3.5-5.1); SGOT/AST 27 IU/L (3-35); SGPT/ALT 21 U/L (12-78); SODIUM 138 mmol/L (136-145); TOTAL PROTEIN 9.1 gm/dL (6.4-8.2); TROPONIN I < 0.015 ng/ml (<0.045)
[2019-08-16 16:26] VITALS: BP 110/62
--- NOTE | 2019-08-16 17:17 | NUR ---
A 64, admitted to , under the services of JUVE Lawrence DO with a diagnosis of COPD EXACERBATION, PNEUMONITIS. Chief complaint is SOB, DIZZINESS, CONFUSION. Patient arrived via bed from ER. Monitor applied. Initial assessment completed. Vital signs taken and recorded. JUVE LAWRENCE DO notified of admission to the unit. Orders received. See assessment for past medical history, medications and allergies. Patient and/or family oriented to unit. [facility] visitation policy reviewed. Clothing/patient valuable form completed. ODALYS BLOOM
--- NOTE | 2019-08-16 17:44 | NUR ---
MEDICATIONS REVIEWED WITH
[2019-08-16 17:45] VITALS: BP 122/53
--- NOTE | 2019-08-16 17:47 | NUR ---
NOTIFIED OF CONSULT, NO NEW ORDERS
[2019-08-16 20:00] VITALS: BP 118/60
--- NOTE | 2019-08-16 21:22 | NUR ---
PATIENT ALERTX2. VOICES NO COMPLAINTS AT THIS TIME. COOPERATIVE, TOOK PILLS WITH SIPS OF WATER. RESPIRATIONS EASY, NON LABORED. BED IN LOWEST POSITION, CALL LIGHT WITHIN REACH. BED ALARM ON. WILL CONTINUE TO MONITOR.
--- NOTE | 2019-08-16 23:32 | NUR ---
PATIENT SET OFF BED ALARM. STATES HE IS LEAVING. PATIENT VERY CONFUSED AND DISORIENTED. NOTIFIED DR. OTOOLE. NO NEW ORDERS RECEIVED. WILL CONTINUE TO MONITOR.
[2019-08-17] VITALS: BP 103/71
--- NOTE | 2019-08-17 04:00 | NUR ---
PATIENT RESTING IN BED, ASLEEP. NO SIGNS OF DISTRESS. RESPIRATIONS EASY, NON LABORED. BED IN LOWEST POSITION, CALL LIGHT WITHIN REACH. BED ALARM ON. WILL CONTINUE TO MONITOR.
[2019-08-17 06:39] LABS: HEMATOCRIT 33.1 % (42.0-52.0); HEMOGLOBIN 10.5 g/dl (14.0-18.0); MEAN CORPUSCULAR HGB 27.3 pg (27.0-31.0); MEAN CORPUSCULAR HGB CONC 31.7 g/dl (33.0-37.0); MEAN PLATELET VOLUME 10.2 fl (9.6-12.3); PLATELET COUNT AUTOMATED 192 10*3/uL (130-400); RED BLOOD COUNT 3.85 10*6/uL (4.50-5.90); RED CELL DISTRI WIDTH 14.1 % (0-14.5); WHITE BLOOD COUNT 7.9 10*3/uL (4.8-10.8)
[2019-08-17 06:58] LABS: ALBUMIN 3.2 gm/dl (3.1-4.5); ALKALINE PHOSPHATASE 83 U/L (45-117); BUN 14 mg/dl (7-24); CHLORIDE 105 mmol/L (98-107); CHOLESTEROL 116 mg/dL (<200); CREATININE 0.83 mg/dL (0.70-1.30); FREE T4 0.86 ng/dl (0.76-1.46); HDL CHOLESTEROL 47 mg/dl (40-60); LDL CHOLESTEROL 62 mg/dL (9-159); PHOSPHOROUS 3.1 mg/dL (2.5-4.9); POTASSIUM 4.2 mmol/L (3.5-5.1); SGOT/AST 20 IU/L (3-35); SGPT/ALT 18 U/L (12-78); SODIUM 137 mmol/L (136-145); TOTAL PROTEIN 7.7 gm/dL (6.4-8.2); TRIGLYCERIDES 37 mg/dl (<150); VLDL CHOLESTEROL 7 mg/dL (6-40)
[2019-08-17 07:03] LABS: THYROID STIM HORMONE (HS) 0.269 uIU/ml (0.358-4.75)
[2019-08-17 07:22] LABS: OVALOCYTES FEW; TOTAL CELLS COUNTED 100 #CELLS
[2019-08-17 07:24] LABS: PLATELET SUFFICIENCY NORMAL (NORMAL)
[2019-08-17 08:12] LABS: VITAMIN D, 25-HYDROXY 44.5 ng/mL (30-100)
--- NOTE | 2019-08-17 08:26 | NUR ---
PHYSICAL THERAPY Screen received, pt is from home admitted with respiratory issues and sepsis please consult PT if patient has a decline in funtional status, thank you. Nereida Duff PT
--- NOTE | 2019-08-17 09:00 | NUR ---
Animal Nursery Worker in to talk to patient. Patient states lives at home with . There are few steps in the home. Physician: nirmal zavala Pharmacy: [facility] health services: none Patient's level of ADLs: INDEPENDENT Patient has working utilities: all working DME: cane, home oxygen, portable tanks, nebulizer and cpap Follow-up physician's appointment after d/c: will be made by hospitalist nurse director upon discharge Does patient want to access PORTAL?: no Discharge plan discussed with patient, he states he lives at home with , he is independent in adls and ambulation with a cane, he states he will return home when medically stable, discussed with him [facility] and educated him on the services they provide, he declines any home needs at this time, case management will follow. ALVAREZ CAMERON
[2019-08-17 12:00] VITALS: BP 122/63
--- NOTE | 2019-08-17 15:18 | NUR ---
Nursing screen received and chart reviewed. Please send OT referral if patient has a decline in ADLs or functional mobility/transfers. Thank you. Ivone Calloway, OTR/L
[2019-08-17 16:00] VITALS: BP 124/50
--- NOTE | 2019-08-17 16:29 | NUR ---
Discharge instructions reviewed with patient/family. Patient receptive and verbalizes understanding. Follow-up care arranged. Written instructions given to patient/family. ALEXANDRIA QUIJANO
[2019-08-17 20:00] VITALS: BP 133/61
--- NOTE | 2019-08-17 22:50 | NUR ---
PATIENT SET BED ALARM OFF. ROMULO HALL WENT INTO PATIENTS ROOM. PATIENT CORNERED PA. SCREAMING AT HER FOR HAVING THE BED ALARM ON. PATIENT REFUSING TO USE URINAL. PATIENT REFUSING TO SIT BACK IN BED. STATES "IM GOING TO STAND UP ALL FUCKING NIGHT" CONTINUES TO SCREAM AT STAFF. NOTIFIED DR. ZAMBRANO.
--- NOTE | 2019-08-17 23:12 | NUR ---
PATIENT NOW IN BED WITH ALARM ON. CONTINUES TO SCREAM AND CUSS AT STAFF. WILL CONTINUE TO MONITOR.
--- NOTE | 2019-08-17 23:25 | NUR ---
DR. ZAMBRANO INTO SEE PATIENT. PATIENT STILL VERY AGITATED. PATIENT ACKNOWLEDGES HE IS SCARING STAFF WITH HIS BEHAVIOR. 0.5MG OF IV ATIVAN ORDERED.
--- NOTE | 2019-08-17 23:59 | NUR ---
PATIENT GIVEN IV ATIVAN AT THIS TIME. WILL CHECK EFFECTIVENESS.
[2019-08-18] VITALS: BP 134/68
--- NOTE | 2019-08-18 02:00 | NUR ---
PATIENT SLEEPING, NO SIGNS OF DISTRESS. RESPIRATIONS EASY, NON LABORED.. ATIVAN EFFECTIVE. BED IN LOWEST POSITION CALL LIGHT WITHIN REACH. BED ALARM ON. WILL CHECK EFFECTIVENESS.
[2019-08-18 06:22] LABS: HEMATOCRIT 33.8 % (42.0-52.0); HEMOGLOBIN 10.7 g/dl (14.0-18.0); MEAN CELL VOLUME 86.7 fl (80.0-94.0); MEAN CORPUSCULAR HGB 27.4 pg (27.0-31.0); MEAN CORPUSCULAR HGB CONC 31.7 g/dl (33.0-37.0); MEAN PLATELET VOLUME 10.4 fl (9.6-12.3); PLATELET COUNT AUTOMATED 216 10*3/uL (130-400); RED CELL DISTRI WIDTH 14.3 % (0-14.5); WHITE BLOOD COUNT 9.2 10*3/uL (4.8-10.8)
[2019-08-18 06:53] LABS: BUN 14 mg/dl (7-24); CHLORIDE 102 mmol/L (98-107); CREATININE 0.86 mg/dL (0.70-1.30); POTASSIUM 4.6 mmol/L (3.5-5.1); SODIUM 138 mmol/L (136-145)
[2019-08-18 07:55] LABS: OVALOCYTES FEW; PLATELET SUFFICIENCY NORMAL (NORMAL); TOTAL CELLS COUNTED 100 #CELLS
--- NOTE | 2019-08-18 09:00 | NUR ---
case management visits with patient, he states he will return home when medically stable and denies any home needs
--- NOTE | 2019-08-18 09:30 | NUR ---
PT RESTING IN BED. PT IS A LITTLE AGITATED DON'T WON'T MESSED WITH. RESP-EASY AND REGULAR. OXYGEN IN USE. NO C/O AT THIS TIME. REFUSES TO ORDER FOOD. CALL LIGHT IN REACH. SEE SHIFT ASSESSMENT.
--- NOTE | 2019-08-18 10:00 | NUR ---
PT UPSET IN SITTING UP IN BED. MAD CAUSE WE HAD BED ALARM ON. I EXPLAINED TO HIM REASON AND WE COULD LEAVE ALARM OFF. HE YELLS STATES NO HE WANTS IT ON AND EVERYONE ELSE ON THE FLOORS BED ALARM ON. PT STATES HE GETS UP TO PEE AND IT SETS BABY ALARM OFF PER PT. HE STATES HE IS JUST GOING PISS ALL OVER THE PLACE. I SPOKE WITH PT AND LET HIM NO IT DIDN'T NEED ON AND HE CONTINUES TO ARGUE AND WANTS IT ON. DR. WILSON ON THE FLOOR AND MADE AWARE PT WANTS TO LEAVE AND IS UPSET. CALL LIGHT IN REACH. WILL CON'T TO MONITOR. SEE SHIFT ASSESSMENT.
--- NOTE | 2019-08-18 10:20 | NUR ---
CALLED AND SPOKE WITH PT AND CALMED HIM DOWN, HE NOW AGREES TO STAY CAUSE HIS TOLD HIM HE WILL HAVE TO PAY THE BILL IF HE LEAVES. HE WANTS BED ALARM ON. ALARM ON. CALL LIGHT IN REACH.
--- NOTE | 2019-08-18 10:38 | NUR ---
CALLED DR. ARREOLA MADE AWARE CALLED AND FEELS HIS PAXIL NEEDS INCREASED. ALSO MADE AWARE PT MEDICATIONS NEED ORDERED.
[2019-08-18 12:00] VITALS: BP 137/94; BP 142/75
--- NOTE | 2019-08-18 12:00 | NUR ---
PT REFUSED TO EAT OR ORDER DINNER AT THIS TIME.
[2019-08-18 16:00] VITALS: BP 122/61
--- NOTE | 2019-08-18 18:30 | NUR ---
SITTING UP AT SIDE OF BED WITH AT HIS SIDE EATING DINNER. NO C/O AT THIS TIME. CALL LIGHT IN REACH.
[2019-08-18 20:00] VITALS: BP 142/76
--- NOTE | 2019-08-18 20:00 | NUR ---
PATIENT CALM AND COOPERATIVE. ALERTX3. VOICES NO COMPLAINTS AT THIS TIME. SITTING IN A CHAIR BESIDE BED. CALL LIGHT WITHIN REACH. WILL CONTINUE TO MONITOR.
--- NOTE | 2019-08-18 20:58 | NUR ---
PATIENT MEDICATED WITH RESTORIL TO HELP SLEEP. WILL CHECK EFFECTIVENESS.
--- NOTE | 2019-08-18 21:56 | NUR ---
PATIENT GIVEN TUMS FOR C/O HEART BURN. WILL CONTINUE TO MONITOR.
[2019-08-19] VITALS: BP 124/67
--- NOTE | 2019-08-19 | NUR ---
PATIENT SLEEPING. NO SIGNS OF DISTRESS. RESPIRATIONS EASY, NON LABORED. NO SIGNS OF DISTRESS. BED IN LOWEST POSTION, BED ALARM ON. CALL LIGHT WITHIN REACH. WILL CONTINUE TO MONITOR.
[2019-08-19 06:22] LABS: HEMATOCRIT 38.6 % (42.0-52.0); HEMOGLOBIN 12.1 g/dl (14.0-18.0); LYMPH # 0.4 10*3/uL (1.3-4.4); LYMPH % 7.4 % (27.0-41.0); MEAN CELL VOLUME 87.1 fl (80.0-94.0); MEAN CORPUSCULAR HGB 27.3 pg (27.0-31.0); MEAN CORPUSCULAR HGB CONC 31.3 g/dl (33.0-37.0); MEAN PLATELET VOLUME 9.8 fl (9.6-12.3); MONO # 0.3 10*3/uL (0.1-1.0); MONO % 5.8 % (3.0-9.0); NEUT # 5.1 10*3/uL (2.3-7.9); NEUT % 86.5 % (47.0-73.0); PLATELET COUNT AUTOMATED 252 10*3/uL (130-400); RED BLOOD COUNT 4.43 10*6/uL (4.50-5.90); RED CELL DISTRI WIDTH 14.2 % (0-14.5); WHITE BLOOD COUNT 5.9 10*3/uL (4.8-10.8)
[2019-08-19 06:30] LABS: BUN 16 mg/dl (7-24); CHLORIDE 98 mmol/L (98-107); CREATININE 1.01 mg/dL (0.70-1.30); POTASSIUM 4.7 mmol/L (3.5-5.1); SODIUM 137 mmol/L (136-145)
[2019-08-19 08:00] VITALS: BP 142/80
[2019-08-19] MEDS ORDERED: PHARMASSURE FO0.4 MG PO (10:51)
[2019-08-19] MEDS ORDERED: LEVAQUIN500 M2 PO (10:51)
[2019-08-19] MEDS ORDERED: PREDNISONE10 MG PO (10:51)
[2019-08-19 12:00] VITALS: BP 136/64
--- NOTE | 2019-08-19 14:00 | NUR ---
Discharge instructions reviewed with patient/family. Patient receptive and verbalizes understanding. Follow-up care arranged. Written instructions given to patient/family. HEPLOCK DISCONTINUED. PATIENT TAKEN OFF FLOOR VIA WHEELCHAIR WITH OXYGEN. PICKED UP BY . ELENO ESPINOZA
== END 2019-08-19 14:00 | disposition home or self-care (01) | DRG 871 ==
LOC: ED 13:22 → EDHOLD 16:06 → 4E 16:06
PROVIDERS: Emergency Medicine; Hospitalist; Internal Medicine; Physician Assistant; ADMIT Internal Medicine
DX: A41.9 Sepsis, unspecified organism (principal); J96.21 Acute and chronic respiratory failure with hypoxia; R65.21 Severe sepsis with septic shock; J44.1 Chronic obstructive pulmonary disease with (acute) exacerbation; J44.0 Chronic obstructive pulmonary disease with (acute) lower respiratory infection; J62.8 Pneumoconiosis due to other dust containing silica; I10 Essential (primary) hypertension; E78.5 Hyperlipidemia, unspecified; I25.119 Atherosclerotic heart disease of native coronary artery with unspecified angina pectoris; J20.9 Acute bronchitis, unspecified; F41.1 Generalized anxiety disorder; Z95.1 Presence of aortocoronary bypass graft; Z95.5 Presence of coronary angioplasty implant and graft; Z88.0 Allergy status to penicillin; Z99.81 Dependence on supplemental oxygen; Z86.73 Personal history of transient ischemic attack (TIA), and cerebral infarction without residual deficits; Z79.899 Other long term (current) drug therapy; Z98.52 Vasectomy status; Z87.891 Personal history of nicotine dependence; Z82.49 Family history of ischemic heart disease and other diseases of the circulatory system; Z82.3 Family history of stroke; Z79.82 Long term (current) use of aspirin

== ENCOUNTER → 2019-11-08 | Outpatient (CLI) | payer OTHER ==
[~2019-11-08] MED LIST changes: +LEVAQUIN500 M2 PO; +PHARMASSURE FO0.4 MG PO
[2019-11-08 08:02] LABS: HEMATOCRIT 39.2 % (42.0-52.0); HEMOGLOBIN 12.6 g/dl (14.0-18.0); MEAN CELL VOLUME 90.3 fl (80.0-94.0); MEAN CORPUSCULAR HGB CONC 32.1 g/dl (33.0-37.0); MEAN PLATELET VOLUME 9.7 fl (9.6-12.3); RED BLOOD COUNT 4.34 10*6/uL (4.50-5.90); RED CELL DISTRI WIDTH 15.6 % (0-14.5); WHITE BLOOD COUNT 5.6 10*3/uL (4.8-10.8)
[2019-11-08 08:43] LABS: ALBUMIN 3.7 gm/dl (3.1-4.5); ALKALINE PHOSPHATASE 82 U/L (45-117); BUN 14 mg/dl (7-24); CHLORIDE 104 mmol/L (98-107); CHOLESTEROL 134 mg/dL (<200); HDL CHOLESTEROL 47 mg/dl (40-60); LDL CHOLESTEROL 62 mg/dL (9-159); POTASSIUM 3.7 mmol/L (3.5-5.1); SGOT/AST 20 IU/L (3-35); SGPT/ALT 23 U/L (12-78); SODIUM 139 mmol/L (136-145); TOTAL PROTEIN 7.6 gm/dL (6.4-8.2); TRIGLYCERIDES 127 mg/dl (<150); VLDL CHOLESTEROL 25 mg/dL (6-40)
== END | disposition home or self-care (01) ==
LOC: LAB 07:48
PROVIDERS: Physician Assistant
DX: I10 Essential (primary) hypertension (principal); I63.312 Cerebral infarction due to thrombosis of left middle cerebral artery; J43.2 Centrilobular emphysema; R35.1 Nocturia; F32.9 Major depressive disorder, single episode, unspecified; R20.0 Anesthesia of skin

== ENCOUNTER → 2019-11-18 | Outpatient (CLI) | payer OTHER | END | disposition home or self-care (01) | LOC: CT 11-14 13:00 | DX: I10 Essential (primary) hypertension (principal); I63.312 Cerebral infarction due to thrombosis of left middle cerebral artery; R20.0 Anesthesia of skin ==

== ENCOUNTER → 2020-03-12 | Outpatient (CLI) | payer OTHER | END | disposition home or self-care (01) | LOC: US 01:55 | DX: I25.10 Atherosclerotic heart disease of native coronary artery without angina pectoris (principal); I73.9 Peripheral vascular disease, unspecified; I77.1 Stricture of artery ==

== ENCOUNTER → 2020-08-08 | Outpatient (CLI) | payer OTHER | END | disposition home or self-care (01) | LOC: RAD 12:42 | PROVIDERS: ATTEND Internal Medicine Cardiovascular Disease | DX: J44.9 Chronic obstructive pulmonary disease, unspecified (principal); J64 Unspecified pneumoconiosis; Z95.1 Presence of aortocoronary bypass graft ==

== ENCOUNTER → 2022-05-07 | Outpatient (CLI) | payer OTHER | END | disposition home or self-care (01) | LOC: CARD 12:41 | PROVIDERS: ATTEND Internal Medicine Cardiovascular Disease | DX: I35.8 Other nonrheumatic aortic valve disorders (principal); I25.810 Atherosclerosis of coronary artery bypass graft(s) without angina pectoris ==

== ENCOUNTER 2023-01-16 09:38 | Inpatient (IN) | payer OTHER ==
[2023-01-16] VITALS (7 sets, daily range): BP systolic 11–121; BP diastolic 40–72
[~2023-01-16] VITALS: Ht 167.6 cm; Wt 82.8 kg
[2023-01-16 10:11] LABS: HEMATOCRIT 33.4 % (42.0-52.0); MANUAL DIFF REFLEX YES; MEAN CELL VOLUME 88.8 fl (80.0-94.0); MEAN CORPUSCULAR HGB 28.7 pg (27.0-31.0); MEAN CORPUSCULAR HGB CONC 32.3 g/dl (33.0-37.0); MEAN PLATELET VOLUME 9.3 fl (9.6-12.3); PLATELET COUNT AUTOMATED 353 10*3/uL (130-400); RED BLOOD COUNT 3.76 10*6/uL (4.50-5.90); RED CELL DISTRI WIDTH 13.6 % (0-14.5); WHITE BLOOD COUNT 16.2 10*3/uL (4.8-10.8)
[2023-01-16 10:22] LABS: ACT PARTIAL THROMBO TIME 31.7 SECONDS (20.0-32.1); INTERNATIONAL NORM RATIO 1.4 (2.0-3.5)
[2023-01-16 10:36] LABS: ALKALINE PHOSPHATASE 67 U/L (46-116); BUN 23 mg/dl (9-23); CHLORIDE 94 mmol/L (98-107); SGPT/ALT 19 U/L (10-49); TOTAL PROTEIN 7.6 gm/dL (6.0-8.0)
[2023-01-16 10:37] LABS: PLATELET SUFFICIENCY NORMAL (NORMAL); TOTAL CELLS COUNTED 100 #CELLS
[2023-01-16] MEDS ORDERED: ASPIRIN CHEWABL81 MG PO (10:50)
[2023-01-16] MEDS ORDERED: IMDUR SA30 MG PO (10:50)
[2023-01-16] MEDS ORDERED: DALI500T PO (10:50)
[2023-01-16] MEDS ORDERED: B12 ACTIVE1000 MCG PO (10:51)
[2023-01-16] MEDS ORDERED: KEPPRA750 MG PO (10:51)
[2023-01-16] MEDS ORDERED: PROCARDIA XL30 MG PO (10:52)
[2023-01-16] MEDS ORDERED: PEPCID AC10 M2 PO (10:53)
[2023-01-16] MEDS ORDERED: FLOMAX0.4 MG PO (10:53)
[2023-01-16] MEDS ORDERED: 'KLONOPIN0.5 MG PO (10:53)
[2023-01-16] MEDS ORDERED: PLAVIX75 M1 PO (10:54)
[2023-01-16] MEDS ORDERED: WIXELA 250-501 EACH INH (10:55)
[2023-01-16 12:38] LABS: ABG BASE EXCESS 0.9 mmol/L (-2.0-2.0); ARTERIAL BLOOD GAS PH 7.392 (7.35-7.45)
[2023-01-16 13:35] LABS: BILIRUBIN Negative (Negative); BLOOD Negative (Negative); CLARITY Cloudy (Clear); COLOR Dark Yellow (Yellow); GLUCOSE Negative (Negative); KETONE Negative (Negative); LEUKO ESTERASE Negative (Negative); NITRITE Negative (Negative); SPECIFIC GRAVITY >= 1.030 (1.001-1.030)
[2023-01-16 14:06] LABS: BACTERIA 2+; MUCOUS 2+
== END 2023-01-16 18:30 | disposition short-term general hospital (02) | DRG 871 ==
LOC: ED 09:38 → EDHOLD 11:25 → 5E 12:18
PROVIDERS: Internal Medicine; ADMIT Emergency Medicine; ATTEND Emergency Medicine
PROC: 5A09357 Assistance with Respiratory Ventilation, Less than 24 Consecutive Hours, Continuous Positive Airway Pressure (ICD-10-PCS; principal; 2023-01-16)
DX: A41.9 Sepsis, unspecified organism (principal); J18.9 Pneumonia, unspecified organism; J96.01 Acute respiratory failure with hypoxia; J44.1 Chronic obstructive pulmonary disease with (acute) exacerbation; E87.1 Hypo-osmolality and hyponatremia; J44.0 Chronic obstructive pulmonary disease with (acute) lower respiratory infection; E44.0 Moderate protein-calorie malnutrition; E87.20 Acidosis, unspecified; Z66 Do not resuscitate; E78.2 Mixed hyperlipidemia; J62.8 Pneumoconiosis due to other dust containing silica; I25.10 Atherosclerotic heart disease of native coronary artery without angina pectoris; F17.200 Nicotine dependence, unspecified, uncomplicated; R65.20 Severe sepsis without septic shock; E87.8 Other disorders of electrolyte and fluid balance, not elsewhere classified; D64.9 Anemia, unspecified; Z86.73 Personal history of transient ischemic attack (TIA), and cerebral infarction without residual deficits; Z88.0 Allergy status to penicillin; Z82.49 Family history of ischemic heart disease and other diseases of the circulatory system; Z79.82 Long term (current) use of aspirin; Z79.899 Other long term (current) drug therapy; Z95.1 Presence of aortocoronary bypass graft; Z82.3 Family history of stroke; Z68.29 Body mass index [BMI] 29.0-29.9, adult

== ENCOUNTER 2023-12-23 13:59 | Inpatient (IN) | payer MEDICARE, OTHER ==
[~2023-12-23] VITALS: Ht 167.6 cm; Wt 86.5 kg
[~2023-12-23 13:59] MED LIST changes: +'KLONOPIN0.5 MG PO; +ASPIRIN CHEWABL81 MG PO; +B12 ACTIVE1000 MCG PO; +DALI500T PO; +FLOMAX0.4 MG PO; +IMDUR SA30 MG PO; +KEPPRA750 MG PO; +PEPCID AC10 M2 PO; +PLAVIX75 M1 PO; +PROCARDIA XL30 MG PO; +WIXELA 250-501 EACH INH
[2023-12-23 14:03] VITALS: BP 106/54
[2023-12-23 14:42] LABS: BASO % 0.2 % (0.0-1.0); EOS % 0.1 % (1.0-4.0); HEMATOCRIT 30.2 % (42.0-52.0); LYMPH # 0.9 10*3/uL (1.3-4.4); LYMPH % 8.6 % (27.0-41.0); MEAN CELL VOLUME 87.5 fl (80.0-94.0); MEAN CORPUSCULAR HGB 28.4 pg (27.0-31.0); MEAN CORPUSCULAR HGB CONC 32.5 g/dl (33.0-37.0); MEAN PLATELET VOLUME 9.2 fl (9.6-12.3); MONO # 1.1 10*3/uL (0.1-1.0); MONO % 10.7 % (3.0-9.0); NEUT # 8.3 10*3/uL (2.3-7.9); NEUT % 80.2 % (47.0-73.0); PLATELET COUNT AUTOMATED 179 10*3/uL (130-400); RED BLOOD COUNT 3.45 10*6/uL (4.50-5.90); RED CELL DISTRI WIDTH 13.5 % (0-14.5); WHITE BLOOD COUNT 10.3 10*3/uL (4.8-10.8)
[2023-12-23 15:19] LABS: ALKALINE PHOSPHATASE 88 U/L (46-116); BUN 11 mg/dl (9-23); CHLORIDE 99 mmol/L (98-107); POTASSIUM 3.2 mmol/L (3.4-5.1); SGPT/ALT 13 U/L (5-49); TOTAL PROTEIN 7.2 gm/dL (6.0-8.0)
[2023-12-23 16:15] VITALS: BP 115/58
[2023-12-23 16:27] LABS: BILIRUBIN Negative (Negative); BLOOD Negative (Negative); CLARITY Clear (Clear); COLOR Yellow (Yellow); GLUCOSE Negative (Negative); KETONE Negative (Negative); LEUKO ESTERASE Negative (Negative); NITRITE Negative (Negative); PH 5.5 (4.5-8.0); UROBILINOGEN 0.2 E.U./dl (0.0-1.0)
[2023-12-23] MEDS ORDERED: Cefepime Hydrochloride 1 GM in SODIUM CHLORIDE 0.9% 50 ML IV ONE (16:40)
[2023-12-23] MEDS ORDERED: Vancomycin Hydrochloride 250 ML IV ONE (17:05)
[2023-12-23] MEDS ORDERED: ACETAMINOPHEN 650 MG SUPP R PRN (17:10)
[2023-12-23] MEDS ORDERED: MORPHINE Sulfate 2 MG/ML SYR IV PRN (17:10)
[2023-12-23] MEDS ORDERED: TEMAZEPAM 15 MG CAP PO PRN (17:10)
[2023-12-23] MEDS ORDERED: BISACODYL 10 MG SUPP R PRN (17:10)
[2023-12-23] MEDS ORDERED: Ondansetron Hydrochloride 4 MG/2 ML VIAL IV PRN (17:10)
[2023-12-23] MEDS ORDERED: ACETAMINOPHEN 325 MG TAB PO PRN (17:10)
[2023-12-23] MEDS ORDERED: Magnesium Hydroxide 30 ML UDC PO PRN (17:10)
[2023-12-23] MEDS ORDERED: BISACODYL 5 MG TAB PO PRN (17:10)
[2023-12-23] MEDS ORDERED: Acetaminophen/Hydrocodone 5 MG/325 MG TABLET PO PRN (17:10)
[2023-12-23] MEDS ORDERED: Albuterol Sulf/Ipratropium 3 ML VIAL NEB SCH (17:15)
[2023-12-23 17:35] LABS: ABG BASE EXCESS 5.3 mmol/L (-2.0-2.0); ARTERIAL BLOOD GAS PH 7.436 (7.35-7.45)
[2023-12-23] MEDS ORDERED: IOHEXOL 300 MG/ML 100 ML VIAL IV ONE (17:50)
[2023-12-23] MEDS ORDERED: Cefepime Hydrochloride 2 GM in SODIUM CHLORIDE 0.9% 50 ML IV SCH (18:00)
[2023-12-23] MEDS ORDERED: POTASSIUM CHLORIDE 20 MEQ TAB PO ONE (18:20)
[2023-12-23 18:30] VITALS: BP 126/51
[2023-12-23] MEDS ORDERED: VANCOMYCIN/WATER FOR INJ (PEG) 300 ML IV SCH (20:00)
[2023-12-23 20:22] VITALS: BP 119/59
[2023-12-23] MEDS ORDERED: GUAIFENESIN 600 MG TAB ER PO SCH (22:00)
[2023-12-23 22:22] VITALS: BP 123/63
[2023-12-24] VITALS: BP 143/63
[2023-12-24] MEDS ORDERED: Cefepime Hydrochloride 2 GM in SODIUM CHLORIDE 0.9% 50 ML IV SCH (02:00)
[2023-12-24 06:01] LABS: ALKALINE PHOSPHATASE 87 U/L (46-116); BUN 9 mg/dl (9-23); CHLORIDE 99 mmol/L (98-107); CHOLESTEROL 104 mg/dL (<200); FREE T4 0.88 ng/dl (0.89-1.76); LDL CHOLESTEROL 59 mg/dL (9-159); POTASSIUM 3.1 mmol/L (3.4-5.1); SGPT/ALT 12 U/L (5-49); TOTAL PROTEIN 7.2 gm/dL (6.0-8.0); TRIGLYCERIDES 85 mg/dl (<150)
[2023-12-24 06:16] LABS: BASO % 0.3 % (0.0-1.0); EOS % 0.4 % (1.0-4.0); HEMATOCRIT 29.7 % (42.0-52.0); LYMPH % 14.6 % (27.0-41.0); MEAN CELL VOLUME 89.5 fl (80.0-94.0); MEAN CORPUSCULAR HGB 28.6 pg (27.0-31.0); MEAN PLATELET VOLUME 9.5 fl (9.6-12.3); MONO # 0.6 10*3/uL (0.1-1.0); MONO % 9.3 % (3.0-9.0); NEUT # 5.1 10*3/uL (2.3-7.9); NEUT % 75.1 % (47.0-73.0); PLATELET COUNT AUTOMATED 165 10*3/uL (130-400); RED BLOOD COUNT 3.32 10*6/uL (4.50-5.90); RED CELL DISTRI WIDTH 13.4 % (0-14.5); WHITE BLOOD COUNT 6.8 10*3/uL (4.8-10.8)
[2023-12-24 06:37] LABS: ACT PARTIAL THROMBO TIME 31.8 SECONDS (20.0-32.1)
[2023-12-24 07:18] LABS: VITAMIN D, 25-HYDROXY 34.3 ng/mL (30-100)
[2023-12-24 07:55] VITALS: BP 137/95
[2023-12-24] MEDS ORDERED: Enoxaparin Sodium 40 MG/0.4 ML SYR SC SCH (10:00)
[2023-12-24] MEDS ORDERED: NITROSTAT0.4 MG SL (11:03)
[2023-12-24] MEDS ORDERED: CLONAZEPAM0.5 M2 PO (11:04)
[2023-12-24] MEDS ORDERED: PROAIR DIGIHAL90 MCG INH (11:10)
[2023-12-24 12:00] VITALS: BP 143/33
[2023-12-24] MEDS ORDERED: LEVETIRACETAM 250 MG TAB PO SCH (12:35)
[2023-12-24] MEDS ORDERED: Clopidogrel Hydrogen Sulfate 75 MG TAB PO SCH (12:35)
[2023-12-24] MEDS ORDERED: BUDESONIDE 0.5 MG AMP NEB SCH (12:40)
[2023-12-24] MEDS ORDERED: POTASSIUM CHLORIDE 20 MEQ TAB PO ONE (12:45)
[2023-12-24] MEDS ORDERED: Metoprolol Tartrate 5 MG/5 ML VIAL IV ONE (13:00)
[2023-12-24] MEDS ORDERED: GABAPENTIN 300 MG CAP PO SCH (14:00)
[2023-12-24] MEDS ORDERED: Metoprolol Tartrate 50 MG TAB PO SCH (14:00)
[2023-12-24 16:00] VITALS: BP 135/81
[2023-12-24] MEDS ORDERED: Fluticasone Propionate/Salmeterol 250/50 diskus INH SCH (18:00)
[2023-12-24 20:00] VITALS: BP 130/70
[2023-12-24] MEDS ORDERED: Tamsulosin Hydrochloride 0.4 MG CAP PO SCH (22:00)
[2023-12-24] MEDS ORDERED: NIFEdipine 30 MG TAB PO SCH (22:00)
[2023-12-24] MEDS ORDERED: ATORVASTATIN CALCIUM 80 MG TAB PO SCH (22:00)
[2023-12-25] VITALS: BP 158/84
[2023-12-25 06:11] LABS: BUN 11 mg/dl (9-23); CHLORIDE 100 mmol/L (98-107); POTASSIUM 3.7 mmol/L (3.4-5.1)
[2023-12-25 06:30] LABS: BASO % 0.3 % (0.0-1.0); EOS # 0.1 10*3/uL (0.0-0.4); EOS % 1.5 % (1.0-4.0); HEMATOCRIT 28.8 % (42.0-52.0); LYMPH # 0.8 10*3/uL (1.3-4.4); LYMPH % 14.3 % (27.0-41.0); MEAN CELL VOLUME 88.1 fl (80.0-94.0); MEAN CORPUSCULAR HGB 28.7 pg (27.0-31.0); MEAN CORPUSCULAR HGB CONC 32.6 g/dl (33.0-37.0); MEAN PLATELET VOLUME 9.5 fl (9.6-12.3); MONO # 0.6 10*3/uL (0.1-1.0); MONO % 9.5 % (3.0-9.0); NEUT # 4.3 10*3/uL (2.3-7.9); NEUT % 74.1 % (47.0-73.0); PLATELET COUNT AUTOMATED 183 10*3/uL (130-400); RED BLOOD COUNT 3.27 10*6/uL (4.50-5.90); RED CELL DISTRI WIDTH 13.4 % (0-14.5); WHITE BLOOD COUNT 5.9 10*3/uL (4.8-10.8)
[2023-12-25 08:00] VITALS: BP 117/70
[2023-12-25] MEDS ORDERED: TIOTROPIUM BROMIDE 18 MCG CAPSULES INHALER INH SCH (10:00)
[2023-12-25] MEDS ORDERED: ASPIRIN, CHEWABLE 81 MG TAB PO SCH (10:00)
[2023-12-25] MEDS ORDERED: ISOSORBIDE MONONITRATE 30 MG TAB PO SCH (10:00)
[2023-12-25] MEDS ORDERED: MAGNESIUM SULFATE 50 ML IV ONE (10:10)
[2023-12-25] MEDS ORDERED: AZITHROMYCIN 250 ML IV SCH (10:10)
[2023-12-25 12:00] VITALS: BP 119/77
[2023-12-25 14:22] LABS: ARTERIAL BLOOD GAS PH 7.416 (7.35-7.45)
[2023-12-25 16:00] VITALS: BP 135/61
[2023-12-25 20:16] VITALS: BP 115/68
[2023-12-26] VITALS: BP 132/55
[2023-12-26 07:12] LABS: BASO % 0.4 % (0.0-1.0); EOS # 0.1 10*3/uL (0.0-0.4); EOS % 2.7 % (1.0-4.0); HEMATOCRIT 30.2 % (42.0-52.0); LYMPH % 18.8 % (27.0-41.0); MEAN CELL VOLUME 89.3 fl (80.0-94.0); MEAN CORPUSCULAR HGB 28.1 pg (27.0-31.0); MEAN CORPUSCULAR HGB CONC 31.5 g/dl (33.0-37.0); MEAN PLATELET VOLUME 8.8 fl (9.6-12.3); MONO # 0.4 10*3/uL (0.1-1.0); MONO % 8.5 % (3.0-9.0); NEUT # 3.6 10*3/uL (2.3-7.9); NEUT % 69.2 % (47.0-73.0); PLATELET COUNT AUTOMATED 202 10*3/uL (130-400); RED BLOOD COUNT 3.38 10*6/uL (4.50-5.90); RED CELL DISTRI WIDTH 13.4 % (0-14.5); WHITE BLOOD COUNT 5.2 10*3/uL (4.8-10.8)
[2023-12-26 07:39] LABS: BUN 9 mg/dl (9-23); CHLORIDE 102 mmol/L (98-107); POTASSIUM 4.5 mmol/L (3.4-5.1)
[2023-12-26 08:00] VITALS: BP 132/65
[2023-12-26 12:00] VITALS: BP 123/45
[2023-12-26] MEDS ORDERED: Ceftriaxone Sodium 2 GM in SYRINGE INFUSION 20 ML IV SCH (12:00)
[2023-12-26 16:00] VITALS: BP 103/47
[2023-12-26 20:00] VITALS: BP 136/58
[2023-12-27] VITALS: BP 130/60
[2023-12-27 08:00] VITALS: BP 105/51
[2023-12-27] MEDS ORDERED: LEVOFLOXACIN750 M2 PO (12:14)
[2023-12-27] MEDS ORDERED: LEVOFLOXACIN 750 MG TAB PO ONE (12:15)
== END 2023-12-27 13:40 | disposition home or self-care (01) | DRG 177 ==
LOC: ED 13:59 → 5E 16:39 → EDHOLD 16:39 → 5E 20:01
PROVIDERS: Internal Medicine; Internal Medicine Critical Care Medicine; Student in an Organized Health Care Education/Training Program; ADMIT Student in an Organized Health Care Education/Training Program; ATTEND Student in an Organized Health Care Education/Training Program
DX: J15.69 Pneumonia due to other Gram-negative bacteria (principal); J96.21 Acute and chronic respiratory failure with hypoxia; J96.22 Acute and chronic respiratory failure with hypercapnia; E87.20 Acidosis, unspecified; E87.1 Hypo-osmolality and hyponatremia; J44.1 Chronic obstructive pulmonary disease with (acute) exacerbation; J44.0 Chronic obstructive pulmonary disease with (acute) lower respiratory infection; Z66 Do not resuscitate; J62.8 Pneumoconiosis due to other dust containing silica; E87.6 Hypokalemia; F17.210 Nicotine dependence, cigarettes, uncomplicated; D64.9 Anemia, unspecified; I10 Essential (primary) hypertension; I25.10 Atherosclerotic heart disease of native coronary artery without angina pectoris; J84.10 Pulmonary fibrosis, unspecified; E78.00 Pure hypercholesterolemia, unspecified; Z71.6 Tobacco abuse counseling; Z51.5 Encounter for palliative care; Z86.73 Personal history of transient ischemic attack (TIA), and cerebral infarction without residual deficits; Z88.0 Allergy status to penicillin; Z79.82 Long term (current) use of aspirin; Z79.51 Long term (current) use of inhaled steroids; Z79.899 Other long term (current) drug therapy; Z82.3 Family history of stroke; Z82.49 Family history of ischemic heart disease and other diseases of the circulatory system; Z95.1 Presence of aortocoronary bypass graft; Z68.30 Body mass index [BMI] 30.0-30.9, adult

== ENCOUNTER → 2024-01-03 | Outpatient (CLI) | payer OTHER ==
[~2024-01-03] MED LIST changes: +CLONAZEPAM0.5 M2 PO; +LEVOFLOXACIN750 M2 PO; +NITROSTAT0.4 MG SL; +PROAIR DIGIHAL90 MCG INH
== END | disposition home or self-care (01) ==
LOC: CT 13:00
PROVIDERS: ATTEND Internal Medicine Critical Care Medicine
DX: Z12.2 Encounter for screening for malignant neoplasm of respiratory organs (principal); J43.2 Centrilobular emphysema; I51.7 Cardiomegaly; I25.10 Atherosclerotic heart disease of native coronary artery without angina pectoris; I71.21 Aneurysm of the ascending aorta, without rupture; J62.8 Pneumoconiosis due to other dust containing silica; J45.40 Moderate persistent asthma, uncomplicated; J96.11 Chronic respiratory failure with hypoxia; Z99.81 Dependence on supplemental oxygen; Z87.891 Personal history of nicotine dependence

== ENCOUNTER → 2025-02-05 | Outpatient (CLI) | payer OTHER | END | disposition home or self-care (01) | LOC: CT 10:35 | PROVIDERS: ATTEND Internal Medicine Critical Care Medicine | DX: Z12.2 Encounter for screening for malignant neoplasm of respiratory organs (principal); R91.8 Other nonspecific abnormal finding of lung field; J43.2 Centrilobular emphysema; J84.10 Pulmonary fibrosis, unspecified; J96.11 Chronic respiratory failure with hypoxia; J62.8 Pneumoconiosis due to other dust containing silica; J45.40 Moderate persistent asthma, uncomplicated; Z87.891 Personal history of nicotine dependence; I25.10 Atherosclerotic heart disease of native coronary artery without angina pectoris ==

== ENCOUNTER → 2025-05-21 | Outpatient (CLI) | payer BC, OTHER ==
[~2025-05-21] MED LIST changes: +IOHEXOL 300 MG/ML 100 ML VIAL IV ONE; +IOHEXOL 300 MG/ML 100 ML VIAL ONE
== END ==
LOC: CT 01:14
PROVIDERS: ATTEND Physician Assistant
DX: K76.0 Fatty (change of) liver, not elsewhere classified (principal); K57.30 Diverticulosis of large intestine without perforation or abscess without bleeding; R16.1 Splenomegaly, not elsewhere classified; R79.89 Other specified abnormal findings of blood chemistry; E27.8 Other specified disorders of adrenal gland; K76.89 Other specified diseases of liver; I70.0 Atherosclerosis of aorta